=== PATIENT | female | born 1990 | race Two or more races ===

== ENCOUNTER 2024-01-30 06:48 | Day surgery (SDC) | payer OTHER ==
[2024-01-20 09:16] LABS: HEMATOCRIT 36.3 % (36.0-45.00); HEMOGLOBIN 12.4 g/dL (12.0-15.00); MEAN CELL VOLUME 88.1 fL (80.00-100.00); MEAN CORPUSCULAR HGB CONC 34.1 g/dl (32.0-36.0); PLATELET COUNT 318 K/uL (150-450); RED BLOOD COUNT 4.12 M/uL (4.00-6.00); RED CELL DISTRIBUTION WIDTH 13.7 % (11.5-14.5)
[2024-01-20 09:29] LABS: URINE APPEARANCE Clear; URINE BILIRRUBIN Negative (NEGATIVE); URINE BLOOD Negative; URINE COLOR Yellow; URINE GLUCOSE Negative (NEGATIVE); URINE LEUKOCYTE Negative; URINE NITRATE Negative; URINE PROTEIN Negative (NEGATIVE); URINE UROBILINOGEN 0.2 E.U./dl
[2024-01-20 09:33] LABS: URINE BACTERIA 672.6 uL (0.0-1933); URINE EPITHELIAL CELLS 33.2 uL (0.0-38.8)
[2024-01-20 09:35] LABS: URINE RBC 1.5 uL (0.0-20.8)
[2024-01-20 09:55] LABS: INR 1.01; PARTIAL THROMBOPLASTIN TIME 30.8 SECONDS (22.0-34.0); PROTHROMBIN TIME 10.6 SECONDS (9.0-11.5)
[2024-01-20 10:00] LABS: ALBUMIN 3.9 gm/dL (3.4-5.0); BILIRUBIN TOTAL 0.47 mg/dL (0.3-1.2); CALCIUM 9.3 mg/dL (8.5-10.1); CREATININE SERUM 0.68 mg/dL (0.55-1.02); GFR 98.46; GLOBULINA 3.5 G/DL (2.4-3.5); POTASSIUM 4.17 mEq/L (3.5-5.1); TOTAL PROTEIN 7.4 gm/dL (6.4-8.2); TSH 1.14 uIU/mL (0.358-3.74)
[2024-01-30] MEDS ORDERED: CEFOXITIN SODIUM 2,000 MG VIAL IV ONE (09:40)
[2024-01-30] MEDS ORDERED: POVIDONE-IODINE 118 ML BOTT TOP ONE ×2 (11:12→12:15)
[2024-01-30] MEDS ORDERED: CEFOXITIN SODIUM 2,000 MG VIAL IV SCH (12:15)
[2024-01-30] MEDS ORDERED: PROMETHAZINE HCL 50 MG/ML AMPUL IM ONE ×2 (12:15→12:30)
[2024-01-30] MEDS ORDERED: MORPHINE SULFATE 4 MG/ML VIAL IV PRN ×2 (12:15→12:30)
[2024-01-30] MEDS ORDERED: MORGIDOX100 MG PO (12:23)
[2024-01-30] MEDS ORDERED: NAPR500T14 PO (12:23)
== END 2024-01-30 16:30 | disposition home or self-care (01) ==
LOC: CIR.AMB 06:48
PROVIDERS: ATTEND Obstetrics & Gynecology
DX: N84.0 Polyp of corpus uteri (principal); D25.0 Submucous leiomyoma of uterus; N92.5 Other specified irregular menstruation; G40.909 Epilepsy, unspecified, not intractable, without status epilepticus

== ENCOUNTER 2024-05-07 09:50 | Outpatient (CLI) | payer OTHER ==
[~2024-05-07 09:50] MED LIST: MORGIDOX100 MG PO; NAPR500T14 PO
== END 2024-05-07 09:52 | disposition home or self-care (01) ==
LOC: RX STUDY 09:50
DX: N94.6 Dysmenorrhea, unspecified (principal)

== ENCOUNTER 2025-08-26 05:51 | Emergency (ER) | payer OTHER ==
[~2025-08-26] VITALS: Ht 157.5 cm; Wt 79.4 kg
[2025-08-26] MEDS ORDERED: RINGERS SOLUTION,LACTATED 1,000 ML IV SCH (07:30)
[2025-08-26 08:13] LABS: BASO % 0.8 % (0.1-1.2); EOS # 0.19 (0.04-0.54); EOS % 3.0 % (0.7-7.0); LYMPH # 2.27 (1.18-3.74); LYMPH % 35.3 % (19.3-53.1); MEAN PLATELET VOLUME 10.30 fl (9.4-12.4); MONO # 0.63 (0.24-0.82); MONO % 9.8 % (4.7-12.5); NEUT # 3.28 (1.56-6.13); NEUT % 50.9 % (34.0-71.1); RED CELL DISTRIBUTION WIDTH 12.5 % (11.6-14.4)
[2025-08-26 09:02] LABS: ALT/SGPT 31.0 U/L (12-78); AST/SGOT 16.0 U/L (15-37); BILIRUBIN TOTAL 0.54 mg/dL (0.3-1.2); BUN CREA RATIO 13.0 (7.0-25.0); CREATININE SERUM 0.69 mg/dL (0.55-1.02); GFR 96.27; GLOBULINA 3.5 G/DL (2.4-3.5); GLUCOSE FASTING 102.0 mg/dL (65-100); OSMOLALITY SERUM 275.0 MOSM/KG (275-295)
[2025-08-26 09:08] LABS: INR 1.01
[2025-08-26] MEDS ORDERED: METHOTREXATE 25 MG/ML IM ONE (11:45)
[2025-08-26] MEDS ORDERED: METHOTREXATE SODIUM/PF 25 MG/ML VIAL IM ONE (13:00)
== END 2025-08-26 13:51 | disposition home or self-care (01) ==
LOC: ER 05:52
PROVIDERS: General Practice
DX: O00.90 Unspecified ectopic pregnancy without intrauterine pregnancy (principal)